=== PATIENT | male | born 1965 | race Caucasian/White ===

== ENCOUNTER 2024-03-20 00:42 | Day surgery (SDC) | payer BC, SELFPAY ==
[2024-02-28 15:14] VITALS: BMI 33.7
--- NOTE | 2024-03-19 17:23 | WPDANESEPP ---
Anes - Eval Pre Procedure Procedure: Operation Date: 03/20/24 08:00 Proposed Procedures p Screening Colonoscopy - Neil Faustin MD Date/Time: 03/19/24 17:23 Pre Op Diagnosis: neoplasm screening Patient Data Age: 59 Gender: M Height: 1.7 m Weight: 97.8 kg Allergies Allergy/AdvReac Type Severity Reaction Status Date / Time No Known Allergies Allergy Verified 02/28/24 15:12 Home Medications Medication Instructions Recorded Confirmed Type amlodipine 10 mg tablet 10 mg PO DAILY 02/28/24 02/28/24 History fluticasone 250 mcg-salmeterol 50 1 inh inhalation Q12H 02/28/24 02/28/24 History mcg/dose blistr powdr for inhalation (Advair Diskus) ibuprofen 800 mg tablet 800 mg PO TID 02/28/24 02/28/24 History omeprazole 10 mg capsule,delayed 10 mg PO DAILY 02/28/24 02/28/24 History release Patient hx anesthesia problems: none Family hx anesthesia problems: none Results Review: All pre-operative results and documents have been reviewed as part of the pre-operative evaluation. [facility] Past Medical History Medical History (Updated 03/19/24 @ 17:24 by Enid Brown CRNA) Arthritis Asthma HTN (hypertension) Migraines, neuralgic Obesity (BMI 30-39.9) Social History Social History Years smoked: 30 Smoking status: Former smoker Tobacco type: cigarettes Alcohol intake: current Drinks per week: 2 Substance use: current Substance use type: marijuana Other substance usage details: Edibles Living arrangements: other Additional living arrangements comments: with sp Exam Day of Procedure 03/19/24 17:23
[2024-03-20 06:50] VITALS: BP 160/87; PULSE 91; RESP 20; TEMP 36.6; O2SAT 100
[2024-03-20] MEDS: LACTATED RINGERS 1,000 ML 150 ML IV CONT (07:03)
--- NOTE | 2024-03-20 07:55 | PM.HPGS ---
History of Present Illness History of Present Illness Consent: Risks, benefits, and alternatives have been discussed and questions answered. Patient agrees to proceed with procedure. Chief complaint: neoplasm screening Narrative: Joe Bass is a 59 year old male with colon polyp 5 years ago Review of Systems Review of Systems: All systems reviewed & are unremarkable except as noted in HPI and below PMFSH Past Medical History Medical History (Updated 03/20/24 @ 07:56 by Neil Faustin MD) Arthritis Asthma Colon polyp HTN (hypertension) Migraines, neuralgic Obesity (BMI 30-39.9) Social History Social History Years smoked: 30 Smoking status: Former smoker Tobacco type: cigarettes Alcohol intake: current Drinks per week: 2 Substance use: current Substance use type: marijuana Other substance usage details: Edibles Living arrangements: other Additional living arrangements comments: with sp Meds Home Medications and Allergies Home Medications Medication Instructions Recorded Confirmed Type amlodipine 10 mg tablet 10 mg PO DAILY 02/28/24 03/20/24 History fluticasone 250 mcg-salmeterol 50 1 inh inhalation Q12H 02/28/24 03/20/24 History mcg/dose blistr powdr for inhalation (Advair Diskus) ibuprofen 800 mg tablet 800 mg PO TID 02/28/24 03/20/24 History omeprazole 10 mg capsule,delayed 10 mg PO DAILY 02/28/24 03/20/24 History release Allergies Allergy/AdvReac Type Severity Reaction Status Date / Time No Known Allergies Allergy Verified 03/20/24 06:48 Vital Signs Vital Signs - 24 hr 03/20/24 06:50 Temperature 97.9 F Pulse Rate 91 Respiratory Rate 20 Blood Pressure 160/87 H Pulse Oximetry 100 Oxygen Delivery Room Air Exam Const: General: comfortable and no acute distress HENMT: Face/Nose/Sinus: Normal nares present Eyes: General: appearance normal, both eyes and all related structures Neck: Neck: no JVD Resp: Auscultation: clear to auscultation bilaterally Cardio: Rate: regular rate Rhythm: regular rhythm GI: Inspection: non-distended GI Palp: Yes Soft to palpation Skin: General skin exam: normal color Neuro: General: gait normal Speech: normal speech Extrem: General: normal to inspection Psych: Mental Status: mental status grossly normal Assessment and Plan Assessment and plan (1) Colon polyp: Code(s): K63.5 - Polyp of colon Status: Acute Assessment and Plan: colonoscopy
[2024-03-20 08:16] VITALS: BP 148/89; PULSE 78; RESP 20; O2SAT 100
[2024-03-20 08:26] VITALS: BP 145/78; PULSE 74; RESP 20; O2SAT 100
[2024-03-20 08:36] VITALS: BP 152/75; PULSE 70; RESP 18; O2SAT 100
== END 2024-03-20 08:40 | disposition home or self-care (01) ==
PROVIDERS: PCP Nurse Practitioner Family; Visit Provider Internal Medicine Gastroenterology
PROC: 0DJD8ZZ Inspection of Lower Intestinal Tract, Via Natural or Artificial Opening Endoscopic (ICD-10-PCS; CPT 45378; principal; 2024-03-20 08:00)
DX: Z12.11 Encounter for screening for malignant neoplasm of colon (principal); D12.3 Benign neoplasm of transverse colon; K57.30 Diverticulosis of large intestine without perforation or abscess without bleeding; I10 Essential (primary) hypertension; J45.909 Unspecified asthma, uncomplicated; E66.9 Obesity, unspecified; Z68.34 Body mass index [BMI] 34.0-34.9, adult; Z87.891 Personal history of nicotine dependence; F12.90 Cannabis use, unspecified, uncomplicated; Z79.51 Long term (current) use of inhaled steroids
CPT/HCPCS: 45385; 88305; J2704; J7120

== ENCOUNTER 2024-05-06 15:17 | Outpatient (CLI) | payer BC, SELFPAY ==
--- NOTE | ~2024-05-06 | US_ITS ---
Testicular ultrasound with doppler. Indication: Left testicular pain. Technique: Real-time sonography the scrotum was performed. Color flow Doppler and Doppler spectral an alysis were performed. Findings: The testes are homogeneous in echotexture bilaterally. There is no evidence of an intrates ticular mass. The right testis measures 4.4 x 2.4 x 3.2 cm and the left 4.0 x 2.1 x 3.6 cm. There is color-flow seen to both testes. Arterial and venous spectral waveforms are seen in both testes. There is no sonographic evidence of torsion. The head of the epididymis is visualized bilaterally and is within normal limits. Small bilateral hydroceles. Probable mild right-sided varicocele. Impression: No testicular mass or torsion. Probable mild right-sided varicocele. Small bilateral hydroceles. Reviewed, dictated and finalized at [facility]. Impression: No testicular mass or torsion. Probable mild right-sided varicocele. Small bilateral hydroceles.
== END 2024-05-06 15:18 | disposition home or self-care (01) ==
PROVIDERS: PCP Nurse Practitioner Family; Visit Provider Nurse Practitioner Family
DX: N43.3 Hydrocele, unspecified (principal); N50.812 Left testicular pain
CPT/HCPCS: 76870; 93976